=== PATIENT | male | born 1970 | race African-American/Black ===

== ENCOUNTER 2018-07-30 14:26 | Emergency (ER) | payer BC ==
[~2018-07-30] VITALS: Ht 177.8 cm; Wt 113.4 kg
--- OUTSIDE RECORDS SUMMARY | 2018-07-30 14:27 | XMS REPORT | Clinical Summary ---
Author Author [facility] Address Unknown Phone Unavailable Care Team Providers Care Systems Auditor Name Role Phone Francisco Javier Metcalf MD PCP Allergies No Known Allergies Medications End Date Status Medication Sig Dispensed Refills Start Date Active metFORMIN (GLUCOPHAGE) Take 500 mg 0 500 mg tablet by mouth 2 8 (two) times a day after meals. Take 1 tab a day after a meal Active metFORMIN (GLUCOPHAGE) Take 1 tablet 180 tablet 0 1,000 mg tablet (1,000 mg 8 total) by mouth 2 (two) times a day with meals. Active Problems No known active problems Encounters Care Team Description Date Type Specialty Francisco Javier Metcalf MD 01/09/2018 Refill Family Medicine Francisco Javier Metcalf MD 10/15/2017 Telephone Family Medicine Francisco Javier Metcalf MD Type 2 diabetes mellitus without complication, without long-term current use of insulin (Primary Dx); BMI 37.0-37.9, adult 10/13/2017 Office Visit Family Medicine after 07/29/2017 Family History Medical History Relation Name Comments No Known Problems Brother No Known Problems Brother Diabetes Father Cancer Mother No Known Problems Sister Relation Name Status Comments Brother Alive Brother Alive Father Mother Alive Sister Alive Social History Date Tobacco Use Types Packs/Day Years Used Quit: 2016 Former Smoker Cigars 2 Smokeless Tobacco: Never Used Comments: smoked 4 cigars a week Alcohol Use Drinks/Week oz/Week Comments Yes 2 Cans of 1.2 2 a week beer Sex Assigned at Date Recorded Not on file Industry Job Start Date Occupation Not on file Not on file Not on file Travel End Travel History Travel Start No recent travel history available. Last Filed Vital Signs Time Taken Vital Sign Reading 10/13/2017 2:00 PM CDT Blood Pressure 109/70 10/13/2017 2:00 PM CDT Pulse 91 10/13/2017 2:00 PM CDT Temperature 36.8 C (98.2 F) - Respiratory Rate - 10/13/2017 2:00 PM CDT Oxygen Saturation 98% - Inhaled Oxygen - Concentration 10/13/2017 2:00 PM CDT Weight 109 kg (241 lb) 10/13/2017 2:00 PM CDT Height 170.2 cm (5' 7") 10/13/2017 2:00 PM CDT Body Mass Index 37.75 Plan of Treatment Health Maintenance Due Date Last Done Comments DIABETIC RETINAL EYE EXAM 1971 DIABETIC FOOT EXAM 12/09/1981 URINE MICROALBUMIN 12/09/1981 INFLUENZA VACCINE 12/29/2017 Results Not on fileafter 07/29/2017 Insurance Payer Benefit Subscriber ID Type Phone Address Plan / Group BCBS BCBS xxxxxxxxxxxx PPO CHOICE PPO/FREIDA MUNOZ PPO Advance Directives Patient has advance care planning documents on file. For more information, duglas macedo contact: Foster Sheikh [phone] [place] [address]
[2018-07-30 15:11] VITALS: BP 143/100
[2018-07-30] MEDS ORDERED: TRAMADOL HCL 50 MG TAB PO ONE (15:15)
== END 2018-07-30 15:32 | disposition home or self-care (01) ==
LOC: FSED 14:26
DX: L02.811 Cutaneous abscess of head [any part, except face] (principal)
CPT/HCPCS: 99282